=== PATIENT | male | born 1965 | race Caucasian/White ===

== ENCOUNTER → 2021-02-18 | Outpatient (CLI) | payer OTHER ==
[~2021-02-18] MED LIST: AMLODIPINE BESY10 MG PO; ATROVENT-HFA12.9 GM INH; ECOTRIN81 MG PO; FLONASE 0.05% N16 GM; HYDROCHLOROTHIA25 MG PO; KEFLEX CAP 250250 MG PO; LORATADINE10 MG PO; METOPROLOL TART50 MG PO; NITROSTAT0.4 MG SL; PHENERGAN 25 MG25 M1 PO; PROTONIX 40 MG40 M1 PO; ROPINIROLE HCL3 MG PO; TAMSULOSIN HCL0.4 MG PO; ULTRAM50 MG PO; VENTOLIN HFA 66.7 GM INH; WELLBUTRIN SR150 M1 PO; ZESTRIL5 MG PO; ZOCOR40 MG PO
[2021-02-18 15:59] LABS: HEMOGLOBIN 14.1 gm/dl (14.0-17.5); RED BLOOD COUNT 4.87 M/UL (4.20-5.50); WHITE BLOOD COUNT 13.3 K/UL (4.5-11.0)
[2021-02-18 16:26] LABS: BUN/CREATININE RATIO 19 (0-10)
== END ==
LOC: LAB 12:26
PROVIDERS: Internal Medicine Interventional Cardiology
DX: I10 Essential (primary) hypertension (principal); I25.10 Atherosclerotic heart disease of native coronary artery without angina pectoris; J44.9 Chronic obstructive pulmonary disease, unspecified
CPT/HCPCS: 36415; 80048; 85025; 85610; 85730; 93005

== ENCOUNTER → 2021-03-02 | Outpatient (CLI) | payer OTHER | LOC: CATH 10:00 | DX: R94.39 Abnormal result of other cardiovascular function study (principal); E78.5 Hyperlipidemia, unspecified; I10 Essential (primary) hypertension; Z87.891 Personal history of nicotine dependence; Z79.82 Long term (current) use of aspirin; Z79.899 Other long term (current) drug therapy | CPT/HCPCS: 93005; 99152; C1769; C1894; J1644; J2250; J3010; J7030; Q9967 ==